=== PATIENT | female | born 1950 | race Caucasian/White ===

== ENCOUNTER 2016-12-17 10:06 | Inpatient (IN) | payer OTHER, MEDICAID ==
[~2016-12-17] VITALS: Ht 157.5 cm; Wt 55.3 kg
[2016-12-17 11:26] LABS: BASOPHIL % 0.2 % (0-2); PLATELET COUNT 345 x10^3mcL (130-400)
[2016-12-17 11:36] LABS: CALCIUM 10.2 mg/dL (8.5-10.1); CARBON DIOXIDE 26.7 mmol/L (21-32); CHLORIDE SERUM 104 mmol/L (98-107); CREATININE SERUM 0.8 mg/dL (0.6-1.0); GFR1 > 60 mL/min; GLUCOSE SERUM 178 mg/dL (74-106); SODIUM SERUM 136 mmol/L (136-145)
[2016-12-17 11:41] LABS: ALBUMIN 3.7 g/dL (3.4-5.0); ALKALINE PHOSPHATASE 73 U/L (46-116); ALT/SGPT 26 U/L (14-59); AST/SGOT 18 U/L (15-37); BILIRUBIN TOTAL 0.2 mg/dL (0.20-1.00); TOTAL PROTEIN, SERUM 6.6 g/dL (6.4-8.2)
[2016-12-17] MEDS ORDERED: METFORMIN HCL500 MG PO (11:42)
[2016-12-17] MEDS ORDERED: LIPI20 PO (11:43)
[2016-12-17] MEDS ORDERED: LISINOPRIL20 MG PO (11:43)
[2016-12-17] MEDS ORDERED: GLUCOTROL10 MG PO (11:46)
[2016-12-17 13:28] LABS: MAGNESIUM 1.6 mg/dL (1.8-2.4); PHOSPHOROUS 2.6 mg/dL (2.5-4.9)
[2016-12-17 13:31] LABS: CHOLESTEROL/HDL RATIO 2.9; T3 TOTAL 0.93 ng/mL
[2016-12-17 13:38] LABS: FREE T4 1.31 ng/dL (0.76-1.46); FREE THYROXINE INDEX 3.1 ug/dL (1.4-4.5); T4(THYROXINE) 8.9 ug/dL (4.7-13.3)
[2016-12-17 15:00] LABS: microscopic required? NO
[2016-12-17 16:25] LABS: urine erythrocyte NEGATIVE (NEGATIVE)
[2016-12-17 16:43] LABS: AMPHETAMINE QUAL UR NONE DETECTED (NEG <=1000)
[2016-12-17 17:54] VITALS: BP 145/71
[2016-12-17 21:47] VITALS: BP 135/66
[2016-12-18 06:07] VITALS: BP 122/61
[2016-12-18 06:19] LABS: ALBUMIN 3.6 g/dL (3.4-5.0); CALCIUM 9.8 mg/dL (8.5-10.1); CARBON DIOXIDE 25.2 mmol/L (21-32); CHLORIDE SERUM 106 mmol/L (98-107); CREATININE SERUM 0.7 mg/dL (0.6-1.0); GFR1 > 60 mL/min; GLUCOSE SERUM 148 mg/dL (74-106); POTASSIUM SERUM 4.3 mmol/L (3.5-5.1); SODIUM SERUM 138 mmol/L (136-145)
[2016-12-18 06:41] LABS: BASOPHIL % 0.5 % (0-2); PLATELET COUNT 335 x10^3mcL (130-400); RED CELL DISTRIBUTION WIDTH 12.6 % (11.5-14.5)
[2016-12-18 09:13] VITALS: BP 125/62
[2016-12-18 14:25] VITALS: BP 133/51
[2016-12-18 18:15] VITALS: BP 115/71
[2016-12-18 22:40] VITALS: BP 118/67
[2016-12-19 05:54] LABS: BASOPHIL % 0.5 % (0-2); PLATELET COUNT 306 x10^3mcL (130-400); RED CELL DISTRIBUTION WIDTH 12.8 % (11.5-14.5)
[2016-12-19 06:14] VITALS: BP 133/76
[2016-12-19 06:20] LABS: CALCIUM 9.3 mg/dL (8.5-10.1); CARBON DIOXIDE 23.2 mmol/L (21-32); CHLORIDE SERUM 108 mmol/L (98-107); CREATININE SERUM 0.7 mg/dL (0.6-1.0); GFR1 > 60 mL/min; GLUCOSE SERUM 145 mg/dL (74-106); POTASSIUM SERUM 4.3 mmol/L (3.5-5.1); SODIUM SERUM 140 mmol/L (136-145)
[2016-12-19 09:40] VITALS: BP 155/59
[2016-12-19] MEDS ORDERED: ECO81 PO (09:40)
[2016-12-19] MEDS ORDERED: PROTONIX TR40 M1 PO (09:42)
[2016-12-19] MEDS ORDERED: METFORMIN HCL1000 MG PO (09:43)
[2016-12-19 09:46] VITALS: BP 155/59
[2016-12-19] MEDS ORDERED: GLU5 PO (09:58)
[2016-12-19] MEDS ORDERED: GAS RELIEF80 MG PO (10:03)
[2016-12-19] MEDS ORDERED: ATORVASTATIN CA20 M1 PO (10:05)
== END 2016-12-19 12:20 | disposition home or self-care (01) | DRG 391 ==
LOC: ED 10:06 → DU 12:37 → MU 12-19 11:50
PROVIDERS: Emergency Medicine; ADMIT Family Medicine
DX: K21.9 Gastro-esophageal reflux disease without esophagitis (principal); N17.0 Acute kidney failure with tubular necrosis; D68.69 Other thrombophilia; E83.42 Hypomagnesemia; E11.65 Type 2 diabetes mellitus with hyperglycemia; E11.51 Type 2 diabetes mellitus with diabetic peripheral angiopathy without gangrene; E83.52 Hypercalcemia; D64.9 Anemia, unspecified; E78.5 Hyperlipidemia, unspecified; I10 Essential (primary) hypertension; M51.14 Intervertebral disc disorders with radiculopathy, thoracic region; M25.78 Osteophyte, vertebrae; Z68.22 Body mass index [BMI] 22.0-22.9, adult; Z79.84 Long term (current) use of oral hypoglycemic drugs
CPT/HCPCS: 82962; 83880; 84439; C9113; J1940; J3475; J7030; Q0092